=== PATIENT | female | born 1995 | race African-American/Black ===

== ENCOUNTER → 2017-03-21 | Outpatient (CLI) | payer BC ==
--- NOTE | 2017-03-21 13:34 | KCIC ---
PELVIS W/TV History: Pelvic pain, irregular menses Comparison: None. Findings: Multiple transabdominal sonographic images of the pelvis are submitted. Uterus measured 4.5 cm transverse. Ovaries are poorly visualized. Transvaginal ultrasound: Multiple transvaginal sonographic images of the pelvis are submitted. Endometrial thickness is within normal limits at 0.2 cm. Uterus measured 6.6 x 4.1 x 3.2 cm. Right ovary measured 3.6 x 2.8 x 2.6 m, a few follicles present with the dominant follicle up to 1.3 cm. There is normal color flow and low resistance vascularity of the right ovary. Left ovary measured 3 x 2.1 x 2.4 cm with normal color flow and low resistance vascularity, a few follicles present. No free fluid is demonstrated. Impression: 1. No significant abnormality is demonstrated. Electronically signed by: Mickey Markham MD (03/21/2017 1:31 PM) [id number]
== END | disposition home or self-care (01) ==
LOC: KCIC US 12:36
PROVIDERS: ATTEND Obstetrics & Gynecology
DX: N92.6 Irregular menstruation, unspecified (principal)
CPT/HCPCS: 76830; 76856